=== PATIENT | female | born 1980 | race Caucasian/White ===

== ENCOUNTER 2019-09-05 17:01 | Emergency (ER) | payer MEDICARE, MEDICAID ==
[~2019-09-05] VITALS: Ht 160 cm; Wt 81.6 kg
[~2019-09-05 17:01] MED LIST: ACET-704 PO; ALBU2.5V8 INH; ALPR2TAB5 PO; AZIT250T PO; CEPH-264 PO; CLAR500T PO; CLIN150C14 PO; CYCL10TA2 PO; DOXY100C2 PO; HYDR-3164 PO; HYDR5SUS PO; KETO10TA PO; LAMO150T3 PO; LIDO20SO PO; PHEN100C PO; PRED50TA PO; QUET100T4 PO; SULF1TAB24 PO; TRAM1TAB56 PO
[2019-09-05 17:11] VITALS: BP 167/107
--- NOTE | 2019-09-05 17:22 | PHYS DOC ---
Past Medical History Past Medical History: Anxiety, Asthma, Bipolar, Seizure Additional Past Medical Histor: pneumonia, FIBROMYALGIA, RA, AUTOIMMUNE DISORDER (DOMINICK LEMUS APRN) Past Surgical History: , Hysterectomy, Other Additional Past Surgical Histo: BLADDER SLING (DOMINICK LEMUS APRN) Alcohol Use: None Drug Use: None (DOMINICK LEMUS APRN) Attending Signature I have participated in the care of this patient and I have reviewed and agree with all pertinent clinical information above including history, exam, and recommendations. (DILSHAD MORAN MD) Adult General Chief Complaint Chief Complaint: LACERATION/AVULSION HPI HPI Patient is a 38 year old female that presents with a superficial laceration to the left thumb. This happened 45 minutes prior to arrival while the patient was using a razor blade to cut decorations for Halloween. The patient states that her tetanus shot is up-to-date and her last one was year and half ago. (DOMINICK LEMUS APRN) Review of Systems Review of Systems Constitutional: Denies fever or chills [] Eyes: Denies change in visual acuity, redness, or eye pain [] HENT: Denies nasal congestion or sore throat [] Respiratory: Denies cough or shortness of breath [] Cardiovascular: No additional information not addressed in HPI [] GI: Denies abdominal pain, nausea, vomiting, bloody stools or diarrhea [] : Denies dysuria or hematuria [] Musculoskeletal: Denies back pain or joint pain [] Integument: Reports Laceration to left thumb. Neurologic: Denies headache, focal weakness or sensory changes [] Endocrine: Denies polyuria or polydipsia [] Complete systems were reviewed and found to be within normal limits, except as documented in this note. (DOMINICK LEMUS APRN) Allergies Allergies Allergies Coded Allergies Type Severity Reaction Last Updated Verified ibuprofen Allergy Intermediate Swelling 06/24/14 Yes Penicillins Adverse Reaction Intermediate VOMITING 02/03/14 Yes (DILSHAD MORAN MD) Physical Exam Physical Exam Constitutional: Well developed, well nourished, no acute distress, non-toxic appearance. [] HENT: Normocephalic, atraumatic, bilateral external ears normal, oropharynx moist, no oral exudates, nose normal. [] Eyes: PERRLA, EOMI, conjunctiva normal, no discharge. [] Neck: Normal range of motion, no tenderness, supple, no stridor. [] Skin: Superficial laceration to middle left thumb over distal joint. Back: No tenderness, no CVA tenderness. [] Extremities: No tenderness, no cyanosis, no clubbing, ROM intact, no edema. [] Neurologic: Alert and oriented X 3, normal motor function, normal sensory function, no focal deficits noted. [] Psychologic: Affect normal, judgement normal, mood normal. [] (DOMINICK LEMUS APRN) Current Patient Data Vital Signs Vital Signs Date Time Temp Pulse Resp B/P (MAP) Pulse Ox O2 Delivery O2 Flow Rate FiO2 09/05/19 17:11 98.6 107 16 167/107 (127) 94 Room Air 98.6 (DILSHAD MORAN MD) EKG EKG [] (DOMINICK LEMUS APRN) Radiology/Procedures Radiology/Procedures [] (DOMINICK LEMUS APRN) Course & Med Decision Making Course & Med Decision Making Pertinent Labs and Imaging studies reviewed. (See chart for details) Cleaned up finger with iodine and normal saline and place Dermabond over superficial laceration. (DOMINICK LEMUS APRN) Dragon Disclaimer Dragon Disclaimer This electronic medical record was generated, in whole or in part, using a voice recognition dictation system. (DOMINICK LEMUS APRN) Departure Departure Impression: Primary Impression: Laceration Disposition: 01 HOME, SELF-CARE Condition: STABLE Referrals: PRICE MENDES MD (PCP) Patient Instructions: Laceration Care, Adult Additional Instructions: Thank you for visiting [facility]. We appreciate you trusting us with your care. If any additional problems come up don't hesitate to return to visit us. Please follow up with your primary care provider so they can plan additional care if needed and know about the problem that you had. If symptoms worsen come back to the Emergency Department. Any concerning symptoms that start such as chest pain, shortness of air, weakness or numbness on one side of the body, running high fevers or any other concerning symptoms return to the ER. Please get wound clean. If you see any signs or symptoms of infection please return to ER or go to your primary care doctor. DOMINICK LEMUS APRN Sep 05, 2019 17:22 DILSHAD MORAN MD Sep 06, 2019 09:37
== END 2019-09-05 17:54 | disposition home or self-care (01) ==
LOC: ER 17:01
DX: S61.012A Laceration without foreign body of left thumb without damage to nail, initial encounter (principal); F41.9 Anxiety disorder, unspecified; J45.909 Unspecified asthma, uncomplicated; F31.9 Bipolar disorder, unspecified; Z98.890 Other specified postprocedural states; Z90.710 Acquired absence of both cervix and uterus; Z88.0 Allergy status to penicillin; Z88.6 Allergy status to analgesic agent; W26.8XXA Contact with other sharp object(s), not elsewhere classified, initial encounter; Y93.89 Activity, other specified; Y92.89 Other specified places as the place of occurrence of the external cause; Y99.8 Other external cause status
CPT/HCPCS: 12001; 99283